=== PATIENT | female | born 1945 | race Caucasian/White ===

== ENCOUNTER → 2020-04-25 | Outpatient (CLI) | payer MEDICARE, OTHER | LOC: CARD 12:20 | PROVIDERS: ATTEND Family Medicine Adult Medicine | DX: I79.8 Other disorders of arteries, arterioles and capillaries in diseases classified elsewhere (principal); I73.9 Peripheral vascular disease, unspecified | CPT/HCPCS: 93922; 93925 ==

== ENCOUNTER → 2020-04-29 | Outpatient (CLI) | payer MEDICARE, OTHER | LOC: RAD 11:42 | PROVIDERS: ATTEND Family Medicine Adult Medicine | DX: I87.2 Venous insufficiency (chronic) (peripheral) (principal); I73.9 Peripheral vascular disease, unspecified | CPT/HCPCS: 93970 ==

== ENCOUNTER 2020-04-30 09:43 | Outpatient (RCR) | payer MEDICARE, OTHER ==
[~2020-04-30 09:43] MED LIST: FLUOCINONIDE 0.05% 1 EA/15 GM TUBE ONE; LIDOCAINE/PRILOCAINE 2.5-2.5% KIT ONE
[2020-04-30] MEDS ORDERED: LIDOCAINE VISC 2% SOLN 15 ML UDC ONE (16:40)
== END 2020-05-01 ==
LOC: WCC 09:43
PROVIDERS: ATTEND Family Medicine Adult Medicine
DX: I87.312 Chronic venous hypertension (idiopathic) with ulcer of left lower extremity (principal); L97.821 Non-pressure chronic ulcer of other part of left lower leg limited to breakdown of skin; L60.8 Other nail disorders; L03.116 Cellulitis of left lower limb; R60.0 Localized edema; I87.2 Venous insufficiency (chronic) (peripheral); I89.0 Lymphedema, not elsewhere classified; I50.9 Heart failure, unspecified; W51.XXXA Accidental striking against or bumped into by another person, initial encounter

== ENCOUNTER 2020-05-03 15:18 | Outpatient (RCR) | payer MEDICARE, OTHER ==
[~2020-05-03 15:18] MED LIST changes: -FLUOCINONIDE 0.05% 1 EA/15 GM TUBE ONE; -LIDOCAINE/PRILOCAINE 2.5-2.5% KIT ONE; +MINERAL OIL/PETROLAT/GLYCERI 6OZ BTL ONE
== END 2020-06-01 ==
LOC: WCC 15:18
PROVIDERS: ATTEND Family Medicine Adult Medicine
DX: I87.312 Chronic venous hypertension (idiopathic) with ulcer of left lower extremity (principal); L97.821 Non-pressure chronic ulcer of other part of left lower leg limited to breakdown of skin; L60.8 Other nail disorders; L03.116 Cellulitis of left lower limb; I87.2 Venous insufficiency (chronic) (peripheral); I79.8 Other disorders of arteries, arterioles and capillaries in diseases classified elsewhere; R60.0 Localized edema; I89.0 Lymphedema, not elsewhere classified; W51.XXXA Accidental striking against or bumped into by another person, initial encounter; I50.9 Heart failure, unspecified

== ENCOUNTER 2020-06-28 13:35 | Outpatient (RCR) | payer MEDICARE, OTHER ==
[~2020-06-28 13:35] MED LIST changes: +FLUOCINONIDE 0.05% 1 EA/15 GM TUBE ONE; -MINERAL OIL/PETROLAT/GLYCERI 6OZ BTL ONE; +TRYPSIN/BALSAM PERU/CASTOR OIL ONE
== END 2020-07-01 ==
LOC: WCC 13:35
PROVIDERS: ATTEND Family Medicine Adult Medicine
DX: I87.312 Chronic venous hypertension (idiopathic) with ulcer of left lower extremity (principal); L97.821 Non-pressure chronic ulcer of other part of left lower leg limited to breakdown of skin; L03.116 Cellulitis of left lower limb; I89.0 Lymphedema, not elsewhere classified; L60.8 Other nail disorders; I79.8 Other disorders of arteries, arterioles and capillaries in diseases classified elsewhere; R60.0 Localized edema; I87.2 Venous insufficiency (chronic) (peripheral); I48.21 Permanent atrial fibrillation; I50.9 Heart failure, unspecified; W51.XXXA Accidental striking against or bumped into by another person, initial encounter

== ENCOUNTER 2020-07-30 11:22 | Outpatient (RCR) | payer MEDICARE, OTHER ==
[~2020-07-30 11:22] MED LIST changes: +LIDOCAINE VISC 2% SOLN 15 ML UDC ONE; +MINERAL OIL/PETROLAT/GLYCERI 2OZ CRM ONE; +MINERAL OIL/PETROLAT/GLYCERI 6OZ BTL ONE
== END 2020-08-01 ==
LOC: WCC 11:22
PROVIDERS: ATTEND Family Medicine Adult Medicine
DX: I87.312 Chronic venous hypertension (idiopathic) with ulcer of left lower extremity (principal); L97.821 Non-pressure chronic ulcer of other part of left lower leg limited to breakdown of skin; L60.8 Other nail disorders; L03.116 Cellulitis of left lower limb; I87.2 Venous insufficiency (chronic) (peripheral); I89.0 Lymphedema, not elsewhere classified; R60.0 Localized edema; E44.0 Moderate protein-calorie malnutrition; I48.21 Permanent atrial fibrillation; I50.9 Heart failure, unspecified; I79.8 Other disorders of arteries, arterioles and capillaries in diseases classified elsewhere; W51.XXXA Accidental striking against or bumped into by another person, initial encounter

== ENCOUNTER 2020-08-30 15:31 | Outpatient (RCR) | payer MEDICARE, OTHER ==
[~2020-08-30 15:31] MED LIST changes: -MINERAL OIL/PETROLAT/GLYCERI 2OZ CRM ONE
== END 2020-09-01 ==
LOC: WCC 15:31
PROVIDERS: ATTEND Family Medicine Adult Medicine
DX: L03.116 Cellulitis of left lower limb (principal); I89.0 Lymphedema, not elsewhere classified; I87.2 Venous insufficiency (chronic) (peripheral); I79.8 Other disorders of arteries, arterioles and capillaries in diseases classified elsewhere; R60.0 Localized edema; L60.8 Other nail disorders; I48.21 Permanent atrial fibrillation; I50.9 Heart failure, unspecified; E44.0 Moderate protein-calorie malnutrition; W51.XXXA Accidental striking against or bumped into by another person, initial encounter

== ENCOUNTER 2020-09-24 14:11 | Outpatient (RCR) | payer MEDICARE, OTHER | END 2020-09-29 | LOC: WCC 14:11 | PROVIDERS: ATTEND Family Medicine Adult Medicine | DX: I87.312 Chronic venous hypertension (idiopathic) with ulcer of left lower extremity (principal); L97.821 Non-pressure chronic ulcer of other part of left lower leg limited to breakdown of skin; L03.116 Cellulitis of left lower limb; R60.0 Localized edema; I89.0 Lymphedema, not elsewhere classified; I87.2 Venous insufficiency (chronic) (peripheral); I79.8 Other disorders of arteries, arterioles and capillaries in diseases classified elsewhere; E44.0 Moderate protein-calorie malnutrition; I48.21 Permanent atrial fibrillation; I50.9 Heart failure, unspecified; W51.XXXA Accidental striking against or bumped into by another person, initial encounter; X58.XXXA Exposure to other specified factors, initial encounter ==

== ENCOUNTER → 2020-10-30 | Outpatient (RCR) | payer MEDICARE, OTHER ==
[~2020-10-30] MED LIST changes: +CLOTRIMAZOLE/BETAMETHASONE 45 GM CR TP ONE; -FLUOCINONIDE 0.05% 1 EA/15 GM TUBE ONE; +MINERAL OIL/PETROLAT/GLYCERI 2OZ CRM ONE
== END ==
LOC: WCC 10-01 16:10
PROVIDERS: ATTEND Family Medicine Adult Medicine
DX: I87.312 Chronic venous hypertension (idiopathic) with ulcer of left lower extremity (principal); L97.821 Non-pressure chronic ulcer of other part of left lower leg limited to breakdown of skin; L03.116 Cellulitis of left lower limb; I89.0 Lymphedema, not elsewhere classified; R60.0 Localized edema; I87.2 Venous insufficiency (chronic) (peripheral); I79.8 Other disorders of arteries, arterioles and capillaries in diseases classified elsewhere; I48.21 Permanent atrial fibrillation; I50.9 Heart failure, unspecified; E44.0 Moderate protein-calorie malnutrition; W51.XXXA Accidental striking against or bumped into by another person, initial encounter; X58.XXXA Exposure to other specified factors, initial encounter

== ENCOUNTER → 2020-11-29 | Outpatient (RCR) | payer MEDICARE, OTHER ==
[~2020-11-29] MED LIST changes: -CLOTRIMAZOLE/BETAMETHASONE 45 GM CR TP ONE; -LIDOCAINE VISC 2% SOLN 15 ML UDC ONE
== END ==
LOC: WCC 10-31 15:32
PROVIDERS: ATTEND Family Medicine Adult Medicine
DX: I87.331 Chronic venous hypertension (idiopathic) with ulcer and inflammation of right lower extremity (principal); I87.332 Chronic venous hypertension (idiopathic) with ulcer and inflammation of left lower extremity; L97.811 Non-pressure chronic ulcer of other part of right lower leg limited to breakdown of skin; L97.821 Non-pressure chronic ulcer of other part of left lower leg limited to breakdown of skin; L03.116 Cellulitis of left lower limb; I79.8 Other disorders of arteries, arterioles and capillaries in diseases classified elsewhere; I89.0 Lymphedema, not elsewhere classified; R60.0 Localized edema; I87.2 Venous insufficiency (chronic) (peripheral); D04.39 Carcinoma in situ of skin of other parts of face; E44.0 Moderate protein-calorie malnutrition; I48.21 Permanent atrial fibrillation; I50.9 Heart failure, unspecified; W51.XXXA Accidental striking against or bumped into by another person, initial encounter; X58.XXXA Exposure to other specified factors, initial encounter

== ENCOUNTER 2020-12-25 12:59 | Outpatient (RCR) | payer MEDICARE, OTHER ==
[~2020-12-25 12:59] MED LIST changes: +FLUOCINONIDE 0.05% 1 EA/15 GM TUBE ONE; -MINERAL OIL/PETROLAT/GLYCERI 2OZ CRM ONE
[2020-12-25] MEDS ORDERED: MINERAL OIL/PETROLAT/GLYCERI 2OZ CRM ONE (13:39)
== END 2020-12-30 ==
LOC: WCC 12:59
PROVIDERS: ATTEND Family Medicine Adult Medicine
DX: L03.116 Cellulitis of left lower limb (principal); I87.2 Venous insufficiency (chronic) (peripheral); I89.0 Lymphedema, not elsewhere classified; I79.8 Other disorders of arteries, arterioles and capillaries in diseases classified elsewhere; R60.0 Localized edema; I50.9 Heart failure, unspecified; I48.21 Permanent atrial fibrillation; E44.0 Moderate protein-calorie malnutrition; D04.39 Carcinoma in situ of skin of other parts of face; X58.XXXA Exposure to other specified factors, initial encounter; W51.XXXA Accidental striking against or bumped into by another person, initial encounter

== ENCOUNTER 2021-01-10 12:39 | Inpatient (IN) | payer MEDICARE, OTHER ==
[~2021-01-10] VITALS: Ht 153.7 cm; Wt 66.7 kg
[2021-01-10 13:32] LABS: BASOPHILS # (AUTO) 0.1 (0.0-0.1); BASOPHILS % 1.2 % (0.0-1.0); EOSINOPHILS # (AUTO) 0.4 (0.0-0.4); EOSINOPHILS % 7.1 % (0.0-6.0); HEMATOCRIT 31.1 % (34.2-44.1); LYMPHOCYTES # (AUTO) 1.3 (1.0-3.2); LYMPHOCYTES % 25.4 % (18.0-39.1); MEAN CORPUSCULAR HEMOGLOBIN 25.1 pg (28-32); MEAN CORPUSCULAR HGB CONC 28.9 g/dL (31-35); MEAN CORPUSCULAR VOLUME 86.9 fL (81-99); MONOCYTES # (AUTO) 0.6 (0.2-0.8); MONOCYTES % 11.3 % (4.4-11.3); NEUTROPHILS # (AUTO) 2.9 (2.1-6.9); NEUTROPHILS % 54.8 % (38.7-80.0); PLATELET COUNT 130 x10e3/uL (140-360); RED BLOOD COUNT 3.58 x10e6/uL (3.6-5.1); RED CELL DISTRIBUTION WIDTH 17.8 % (11.7-14.4)
[2021-01-10 13:37] LABS: INR 1.1; PROTHROMBIN TIME 14.8 seconds (11.9-14.5)
[2021-01-10 13:38] LABS: PARTIAL THROMBOPLASTIN TIME 30.5 seconds (23.8-35.5)
[2021-01-10 13:46] LABS: ALANINE AMINOTRANSFERASE 6 IU/L (0-55); ALBUMIN 3.3 g/dL (3.5-5.0); ALKALINE PHOSPHATASE 109 IU/L (40-150); BLOOD UREA NITROGEN 14 mg/dL (7-26); BUN/CREATININE RATIO 18 (6-25); CALCIUM 8.3 mg/dL (8.4-10.2); CARBON DIOXIDE 28 mmol/L (22-29); CHLORIDE 105 mmol/L (98-107); CREATINE KINASE 84 IU/L (29-168); CREATININE, SERUM 0.78 mg/dL (0.57-1.11); EST GLOMERULAR FILTRATION RATE > 60 ML/MIN (60-); GLUCOSE 114 mg/dL (74-118); SODIUM 141 mmol/L (136-145)
[2021-01-10] MEDS ORDERED: MEROPENEM 1GM / NS 100ML 100 ML IV ONE (14:15)
[2021-01-10] MEDS ORDERED: ONDANSETRON HCL INJ 2MG/ML 2ML 2 MG/ML VIAL IV PRN (14:30)
[2021-01-10] MEDS: VANCOMYCIN 1GM/NS 250 ML 250 ML IV SCH (15:00)
[2021-01-10 16:00] VITALS: BP 115/72
[2021-01-10 17:04] VITALS: BP 115/72
[2021-01-10] MEDS ORDERED: BALSAM PERU/CASTOR OIL 60 GM OINT...G. TP SCH (18:00)
[2021-01-10 19:59] VITALS: BP 127/74
[2021-01-10] MEDS ORDERED: ACETAMINOPHEN 325 MG TAB PO PRN (20:15)
[2021-01-10 21:00] VITALS: BP 127/74
[2021-01-10] MEDS: HEPARIN SOD (PORCINE) 5,000 UNIT/ML VIAL SC SCH (21:00)
[2021-01-10] MEDS: BALSAM PERU/CASTOR OIL 60 GM OINT...G. TP SCH (21:51)
[2021-01-10] MEDS: HYDROCODONE/APAP 5MG-325MG TAB PO PRN (21:51)
[2021-01-11] VITALS (8 sets, daily range): BP systolic 122–141; BP diastolic 74–110
[2021-01-11] MEDS: MEROPENEM 1GM / NS 100ML 100 ML IV SCH ×2 (01:21→14:00)
[2021-01-11 06:33] LABS: BASOPHILS # (AUTO) 0.1 (0.0-0.1); BASOPHILS % 0.9 % (0.0-1.0); EOSINOPHILS # (AUTO) 0.3 (0.0-0.4); HEMATOCRIT 27.7 % (34.2-44.1); HEMOGLOBIN 8.1 g/dL (12.0-16.0); LYMPHOCYTES # (AUTO) 1.1 (1.0-3.2); LYMPHOCYTES % 19.8 % (18.0-39.1); MEAN CORPUSCULAR HEMOGLOBIN 24.8 pg (28-32); MEAN CORPUSCULAR HGB CONC 29.2 g/dL (31-35); MONOCYTES # (AUTO) 0.7 (0.2-0.8); MONOCYTES % 12.7 % (4.4-11.3); NEUTROPHILS # (AUTO) 3.3 (2.1-6.9); NEUTROPHILS % 61.2 % (38.7-80.0); PLATELET COUNT 155 x10e3/uL (140-360); RED BLOOD COUNT 3.26 x10e6/uL (3.6-5.1); RED CELL DISTRIBUTION WIDTH 17.7 % (11.7-14.4)
[2021-01-11 07:06] LABS: ALBUMIN 2.9 g/dL (3.5-5.0); ALKALINE PHOSPHATASE 97 IU/L (40-150); BLOOD UREA NITROGEN 10 mg/dL (7-26); BUN/CREATININE RATIO 16 (6-25); CALCIUM 7.6 mg/dL (8.4-10.2); CARBON DIOXIDE 25 mmol/L (22-29); CHLORIDE 106 mmol/L (98-107); CREATININE, SERUM 0.63 mg/dL (0.57-1.11); EST GLOMERULAR FILTRATION RATE > 60 ML/MIN (60-); GLUCOSE 96 mg/dL (74-118); SODIUM 137 mmol/L (136-145)
[2021-01-11 07:07] LABS: ALANINE AMINOTRANSFERASE < 6 IU/L (0-55)
[2021-01-11] MEDS: HYDROCODONE/APAP 5MG-325MG TAB PO PRN ×4 (08:51→23:30)
[2021-01-11] MEDS: HEPARIN SOD (PORCINE) 5,000 UNIT/ML VIAL SC SCH ×2 (08:54→20:46)
[2021-01-11] MEDS: BALSAM PERU/CASTOR OIL 60 GM OINT...G. TP SCH (12:00)
[2021-01-11] MEDS: METOPROLOL TARTRATE 25 MG TAB PO SCH ×2 (14:00→21:49)
[2021-01-11] MEDS: MORPHINE SULFATE INJ 2 MG/ML SYR IV PRN (14:39)
[2021-01-11] MEDS: LACTOBACILLUS ACIDOPHILUS CAPSULE PO SCH (17:49)
[2021-01-12] VITALS (9 sets, daily range): BP systolic 127–142; BP diastolic 76–91
[2021-01-12] MEDS: MEROPENEM 1GM / NS 100ML 100 ML IV SCH ×2 (01:12→13:34)
[2021-01-12] MEDS: MORPHINE SULFATE INJ 2 MG/ML SYR IV PRN (03:45)
[2021-01-12] MEDS: BALSAM PERU/CASTOR OIL 60 GM OINT...G. TP SCH ×2 (04:00→09:00)
[2021-01-12] MEDS: HYDROCODONE/APAP 5MG-325MG TAB PO PRN ×4 (05:39→21:46)
[2021-01-12] MEDS: METOPROLOL TARTRATE 25 MG TAB PO SCH ×3 (05:39→21:46)
[2021-01-12] MEDS: LACTOBACILLUS ACIDOPHILUS CAPSULE PO SCH ×2 (08:41→16:37)
[2021-01-12] MEDS: HEPARIN SOD (PORCINE) 5,000 UNIT/ML VIAL SC SCH ×2 (09:00→21:46)
[2021-01-12] MEDS: VANCOMYCIN 1GM/NS 250 ML 250 ML IV SCH ×2 (14:46→14:58)
[2021-01-13 02:07] VITALS: BP 148/94
[2021-01-13] MEDS: HYDROCODONE/APAP 5MG-325MG TAB PO PRN ×4 (02:24→15:49)
[2021-01-13] MEDS: MEROPENEM 1GM / NS 100ML 100 ML IV SCH ×2 (02:30→14:06)
[2021-01-13] MEDS: MORPHINE SULFATE INJ 2 MG/ML SYR IV PRN ×2 (03:47→10:10)
[2021-01-13 05:34] LABS: BASOPHILS # (AUTO) 0.1 (0.0-0.1); BASOPHILS % 1.2 % (0.0-1.0); EOSINOPHILS # (AUTO) 0.4 (0.0-0.4); EOSINOPHILS % 7.6 % (0.0-6.0); HEMATOCRIT 33.1 % (34.2-44.1); HEMOGLOBIN 9.5 g/dL (12.0-16.0); LYMPHOCYTES # (AUTO) 0.9 (1.0-3.2); LYMPHOCYTES % 18.7 % (18.0-39.1); MEAN CORPUSCULAR HEMOGLOBIN 24.9 pg (28-32); MEAN CORPUSCULAR HGB CONC 28.7 g/dL (31-35); MEAN CORPUSCULAR VOLUME 86.6 fL (81-99); MONOCYTES # (AUTO) 0.6 (0.2-0.8); MONOCYTES % 11.7 % (4.4-11.3); NEUTROPHILS % 60.6 % (38.7-80.0); PLATELET COUNT 184 x10e3/uL (140-360); RED BLOOD COUNT 3.82 x10e6/uL (3.6-5.1); RED CELL DISTRIBUTION WIDTH 18.3 % (11.7-14.4)
[2021-01-13 05:42] LABS: ANION GAP 10.8 mmol/L (8-16); BLOOD UREA NITROGEN 6 mg/dL (7-26); BUN/CREATININE RATIO 11 (6-25); CARBON DIOXIDE 26 mmol/L (22-29); CHLORIDE 106 mmol/L (98-107); CREATININE, SERUM 0.57 mg/dL (0.57-1.11); EST GLOMERULAR FILTRATION RATE > 60 ML/MIN (60-); GLUCOSE 94 mg/dL (74-118); POTASSIUM 3.8 mmol/L (3.5-5.1); SODIUM 139 mmol/L (136-145)
[2021-01-13] MEDS: METOPROLOL TARTRATE 25 MG TAB PO SCH ×2 (06:31→14:11)
[2021-01-13 07:05] VITALS: BP 147/94
[2021-01-13 07:55] VITALS: BP 146/96
[2021-01-13 08:18] VITALS: BP 146/96
[2021-01-13] MEDS: LACTOBACILLUS ACIDOPHILUS CAPSULE PO SCH (08:49)
[2021-01-13] MEDS: HEPARIN SOD (PORCINE) 5,000 UNIT/ML VIAL SC SCH (09:06)
[2021-01-13] MEDS: BALSAM PERU/CASTOR OIL 60 GM OINT...G. TP SCH (10:52)
[2021-01-13 12:15] VITALS: BP 130/97
[2021-01-13] MEDS ORDERED: KEFLEX125 MG/5 M PO (14:29)
[2021-01-13] MEDS ORDERED: LOPRESSOR25 MG PO (14:32)
[2021-01-13 16:09] VITALS: BP 107/72
== END 2021-01-13 16:45 | disposition home health service (06) | DRG 603 ==
LOC: ER 12:50 → ERHOLD 14:36 → MED/SURG3 15:45
PROVIDERS: ADMIT Internal Medicine; ATTEND Internal Medicine
DX: L03.116 Cellulitis of left lower limb (principal); L03.115 Cellulitis of right lower limb; I50.9 Heart failure, unspecified; I48.91 Unspecified atrial fibrillation; I25.10 Atherosclerotic heart disease of native coronary artery without angina pectoris; Z90.49 Acquired absence of other specified parts of digestive tract; Z98.84 Bariatric surgery status; S80.862A Insect bite (nonvenomous), left lower leg, initial encounter; I89.0 Lymphedema, not elsewhere classified; Z86.14 Personal history of Methicillin resistant Staphylococcus aureus infection; G43.909 Migraine, unspecified, not intractable, without status migrainosus; D63.8 Anemia in other chronic diseases classified elsewhere; Z20.822 Contact with and (suspected) exposure to COVID-19
CPT/HCPCS: 36415; 71045; 80048; 80053; 82550; 82553; 83880; 84484; 85025; 85610; 85730; 87040; 93005; 93306; 93970; 99251; 99284; J1644; J2270; J2405; J3370; U0002

== ENCOUNTER 2021-01-28 11:02 | Outpatient (RCR) | payer MEDICARE, OTHER ==
[~2021-01-28 11:02] MED LIST changes: +KEFLEX125 MG/5 M PO; +LIDOCAINE VISC 2% SOLN 15 ML UDC ONE; +LOPRESSOR25 MG PO
== END 2021-01-29 ==
LOC: WCC 11:02
PROVIDERS: ATTEND Family Medicine Adult Medicine
DX: L03.116 Cellulitis of left lower limb (principal); I87.2 Venous insufficiency (chronic) (peripheral); I89.0 Lymphedema, not elsewhere classified; R60.0 Localized edema; I79.8 Other disorders of arteries, arterioles and capillaries in diseases classified elsewhere; D04.39 Carcinoma in situ of skin of other parts of face; I50.9 Heart failure, unspecified; I48.21 Permanent atrial fibrillation; E44.0 Moderate protein-calorie malnutrition; X58.XXXA Exposure to other specified factors, initial encounter; W51.XXXA Accidental striking against or bumped into by another person, initial encounter

== ENCOUNTER 2021-02-27 13:19 | Outpatient (RCR) | payer MEDICARE, OTHER ==
[2021-02-04 12:03] LABS: BASOPHILS # (AUTO) 0.1 (0.0-0.1); BASOPHILS % 1.5 % (0.0-1.0); EOSINOPHILS # (AUTO) 0.4 (0.0-0.4); EOSINOPHILS % 9.3 % (0.0-6.0); HEMATOCRIT 29.9 % (34.2-44.1); HEMOGLOBIN 8.6 g/dL (12.0-16.0); LYMPHOCYTES # (AUTO) 1.3 (1.0-3.2); LYMPHOCYTES % 28.2 % (18.0-39.1); MEAN CORPUSCULAR HEMOGLOBIN 24.7 pg (28-32); MEAN CORPUSCULAR HGB CONC 28.8 g/dL (31-35); MEAN CORPUSCULAR VOLUME 85.9 fL (81-99); MONOCYTES # (AUTO) 0.6 (0.2-0.8); MONOCYTES % 12.3 % (4.4-11.3); NEUTROPHILS # (AUTO) 2.3 (2.1-6.9); NEUTROPHILS % 48.5 % (38.7-80.0); PLATELET COUNT 70 x10e3/uL (140-360); RED BLOOD COUNT 3.48 x10e6/uL (3.6-5.1); RED CELL DISTRIBUTION WIDTH 17.8 % (11.7-14.4)
[~2021-02-27 13:19] MED LIST changes: -LIDOCAINE VISC 2% SOLN 15 ML UDC ONE; +MINERAL OIL/PETROLAT/GLYCERI 2OZ CRM ONE; +TRIAMCINOLONE ACET 0.1% CREAM 15 GM TUBE ONE
== END 2021-03-01 ==
LOC: WCC 13:19
PROVIDERS: ATTEND Family Medicine Adult Medicine
DX: L03.116 Cellulitis of left lower limb (principal); L60.8 Other nail disorders; R60.0 Localized edema; I79.8 Other disorders of arteries, arterioles and capillaries in diseases classified elsewhere; I87.2 Venous insufficiency (chronic) (peripheral); I89.0 Lymphedema, not elsewhere classified; I50.9 Heart failure, unspecified; I48.21 Permanent atrial fibrillation; E44.0 Moderate protein-calorie malnutrition; D04.39 Carcinoma in situ of skin of other parts of face; W51.XXXA Accidental striking against or bumped into by another person, initial encounter; X58.XXXA Exposure to other specified factors, initial encounter
CPT/HCPCS: 36415; 84134; 85025

== ENCOUNTER → 2021-04-01 | Outpatient (RCR) | payer MEDICARE, OTHER ==
[~2021-04-01] MED LIST changes: -MINERAL OIL/PETROLAT/GLYCERI 2OZ CRM ONE; -TRIAMCINOLONE ACET 0.1% CREAM 15 GM TUBE ONE
== END ==
LOC: WCC 03-04 15:09
PROVIDERS: ATTEND Family Medicine Adult Medicine
DX: I87.332 Chronic venous hypertension (idiopathic) with ulcer and inflammation of left lower extremity (principal); L97.821 Non-pressure chronic ulcer of other part of left lower leg limited to breakdown of skin; L03.116 Cellulitis of left lower limb; I87.2 Venous insufficiency (chronic) (peripheral); R60.0 Localized edema; I79.8 Other disorders of arteries, arterioles and capillaries in diseases classified elsewhere; R53.83 Other fatigue; I89.0 Lymphedema, not elsewhere classified; I50.9 Heart failure, unspecified; I48.21 Permanent atrial fibrillation; D64.9 Anemia, unspecified; E44.0 Moderate protein-calorie malnutrition; E43 Unspecified severe protein-calorie malnutrition; D04.39 Carcinoma in situ of skin of other parts of face; X58.XXXA Exposure to other specified factors, initial encounter; W51.XXXA Accidental striking against or bumped into by another person, initial encounter

== ENCOUNTER 2021-04-11 11:09 | Outpatient (RCR) | payer MEDICARE, OTHER ==
[~2021-04-11 11:09] MED LIST changes: -FLUOCINONIDE 0.05% 1 EA/15 GM TUBE ONE; -MINERAL OIL/PETROLAT/GLYCERI 6OZ BTL ONE; -TRYPSIN/BALSAM PERU/CASTOR OIL ONE
== END 2021-05-01 ==
LOC: WCC 11:09
PROVIDERS: ATTEND Family Medicine Adult Medicine
DX: D04.39 Carcinoma in situ of skin of other parts of face (principal); L03.116 Cellulitis of left lower limb; I89.0 Lymphedema, not elsewhere classified; I87.2 Venous insufficiency (chronic) (peripheral); I79.8 Other disorders of arteries, arterioles and capillaries in diseases classified elsewhere; R60.0 Localized edema; S50.811A Abrasion of right forearm, initial encounter; D64.9 Anemia, unspecified; E43 Unspecified severe protein-calorie malnutrition; E44.0 Moderate protein-calorie malnutrition; I48.21 Permanent atrial fibrillation; I50.9 Heart failure, unspecified; R53.83 Other fatigue; W51.XXXA Accidental striking against or bumped into by another person, initial encounter; X58.XXXA Exposure to other specified factors, initial encounter